=== PATIENT | male | born 2000 | race Caucasian/White ===

== ENCOUNTER 2020-01-11 07:33 | Outpatient (CLI) | payer OTHER ==
[~2020-01-11 07:33] MED LIST: LIDOCAINE-MPF 1%, 5ML ONE; ROPivacaine/PF 0.2%, 10 ML ONE; TRIAMCINOLONE ACETONIDE 40 MG/ML, 1ML ONE
[2020-01-11] MEDS ORDERED: OMNIPAQUE 300 MG/ML, 10ML VIAL ONE (08:49)
[2020-01-11] MEDS ORDERED: GADOTERATE 5 MMOL/10 ML VIAL ONE (08:49)
== END 2020-01-11 23:59 | disposition home or self-care (01) ==
LOC: RAD 07:33
PROVIDERS: ATTEND Orthopaedic Surgery
DX: M25.551 Pain in right hip (principal); M25.851 Other specified joint disorders, right hip
CPT/HCPCS: 27093; 73525; 73722; A9575; J2795; J3301; Q9967

== ENCOUNTER → 2020-06-15 | Outpatient (CLI) | payer OTHER | END | disposition home or self-care (01) | LOC: STAR 08:34 | PROVIDERS: ATTEND Orthopaedic Surgery | DX: Z01.812 Encounter for preprocedural laboratory examination (principal); Z20.828 Contact with and (suspected) exposure to other viral communicable diseases | CPT/HCPCS: 36415; 87635 ==

== ENCOUNTER 2020-06-19 10:17 | Day surgery (SDC) | payer OTHER ==
[~2020-06-19] VITALS: Ht 170.2 cm; Wt 77.7 kg
[~2020-06-19 10:17] MED LIST changes: +CEFAZOLIN 1,000 MG ONE; +DEXAMETHASONE 4 MG/ML, 1ML ONE; +FENTANYL PF 100 MCG/2ML ONE; +GLYCOPYRROLATE 0.2MG/1ML, 5ML ONE; +LIDOCAINE 1%, 20ML ONE; -LIDOCAINE-MPF 1%, 5ML ONE; +MIDAZOLAM 1 MG/ML, 2ML ONE; +NEOSTIGMINE 1 MG/ML, 10ML ONE; +ONDANSETRON 2MG/ML, 2ML ONE; +PROPOFOL 10 MG/ML, 20ML ONE; +ROCURONIUM 10MG/ML,5ML ONE; +ROPIvacaine/PF 0.5%, 30 ML ONE; -ROPivacaine/PF 0.2%, 10 ML ONE; +SUCCINYLCHOLINE 20 MG/ML, 10ML ONE; -TRIAMCINOLONE ACETONIDE 40 MG/ML, 1ML ONE
[2020-06-19] MEDS ORDERED: LACTATED RINGERS 1,000 ML IV SCH (10:29)
[2020-06-19] MEDS ORDERED: CHLORHEXIDINE 15 ML UDC MM STA (10:29)
[2020-06-19 10:49] VITALS: BP 147/97
[2020-06-19] MEDS ORDERED: TYLENOL (10:55)
[2020-06-19] MEDS ORDERED: NAPR-685 PO (10:55)
[2020-06-19] MEDS ORDERED: LIDOCAINE-MPF 1%, 2ML INFIL ONE (10:56)
[2020-06-19] MEDS ORDERED: LIDOCAINE-MPF 1%, 2ML ONE (10:58)
[2020-06-19] MEDS ORDERED: PLEASE ENTER HEIGHT AND WEIGHT MC SCH (11:00)
[2020-06-19] MEDS ORDERED: PHENYLEPHRINE 10 MG/ML ONE (12:25)
[2020-06-19] MEDS ORDERED: LIDOCAINE PF 2%, 5ML ONE (12:25)
[2020-06-19] MEDS ORDERED: ROPIvacaine/PF 0.5%, 30 ML INFIL ONE (13:13)
[2020-06-19] MEDS ORDERED: FENTANYL PF 100 MCG/2ML ONE (14:20)
[2020-06-19] MEDS: FENTANYL PF 100 MCG/2ML IV PRN ×3 (14:21→14:55)
[2020-06-19] MEDS ORDERED: PROMETHAZINE 25 MG/ML, 1ML IVPush PRN (14:30)
[2020-06-19] MEDS ORDERED: MEPERIDINE/PF 25MG/0.5ML IVPush PRN (14:30)
[2020-06-19] MEDS ORDERED: OXYcodone 5 MG/5 ML ORAL.SOL UDC PO PRN (14:30)
[2020-06-19] MEDS ORDERED: KETOROLAC 30 MG/1 ML IVPush PRN (14:30)
[2020-06-19] MEDS ORDERED: HYDROmorphone 1 MG/ML, 1ML INJ IVPush PRN (14:30)
[2020-06-19] MEDS ORDERED: KETOROLAC 30 MG/1 ML ONE (14:31)
[2020-06-19] MEDS: HYDROcodone/APAP 7.5-325MG/15ML UDC PO PRN ×2 (14:31→15:08)
[2020-06-19] MEDS ORDERED: HYDROcodone/APAP 7.5-325MG/15ML UDC ONE (14:31)
== END 2020-06-19 16:25 | disposition home or self-care (01) ==
LOC: OUT 10:17
PROVIDERS: ATTEND Orthopaedic Surgery
DX: S73.191A Other sprain of right hip, initial encounter (principal); M25.851 Other specified joint disorders, right hip; M65.851 Other synovitis and tenosynovitis, right thigh; Z79.1 Long term (current) use of non-steroidal anti-inflammatories (NSAID); Z79.899 Other long term (current) drug therapy; X58.XXXA Exposure to other specified factors, initial encounter; Y93.89 Activity, other specified; Y92.89 Other specified places as the place of occurrence of the external cause; Y99.8 Other external cause status
CPT/HCPCS: 29914; 29916; 73501; C1713; J0330; J0690; J1100; J1885; J2250; J2370; J2405; J2704; J2710; J2795; J3010; J7120; 76000